=== PATIENT | male | born 1985 | race Caucasian/White ===

== ENCOUNTER → 2016-07-16 | Outpatient (CLI) | payer BC ==
[~2016-07-16] MED LIST: CLR10 PO
--- NOTE | 2016-07-16 12:21 | DIAGNOSTIC IMAGING REPORT ---
SI JOINTS 3 OR MORE VIEWS CLINICAL HISTORY: L40.50 Psoriatic [id number] High risk medication useZ79. 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 Mild sclerosis right sacroiliac joint. Sacral foramina symmetric. Mild degenerative change of the hips bilaterally. 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 Mild/moderate to moderate degenerative change right sacroiliac joint. Electronically signed by: Reinier Troy M.D. 07/16/2016 12:19 PM Dictated Date/Time: 07/16/2016 12:16 PM
--- NOTE | 2016-07-16 12:30 | DIAGNOSTIC IMAGING REPORT ---
LEFT CLAVICLE 2 VIEWS HISTORY: M89.8X1 Pain of left clavicle COMPARISON: None. FINDINGS: There is no fracture or dislocation. Soft tissues are unremarkable. No radiopaque foreign bodies. The AC joint is well aligned. No erosions identified. IMPRESSION: Unremarkable left clavicle. Electronically signed by: Jay Cantu M.D. 07/16/2016 12:28 PM Dictated Date/Time: 07/16/2016 12:28 PM
--- NOTE | 2016-07-16 12:32 | DIAGNOSTIC IMAGING REPORT ---
LEFT FOOT MIN 3 VIEWS ROUTINE CLINICAL HISTORY: Psoriatic arthropathy. COMPARISON: Left foot radiographs May 27, 2011. FINDINGS: Tarsometatarsal joints are intact. There is moderate plantar calcaneal spurring. There is joint space narrowing with erosions of the interphalangeal joint of the left first toe. Slight progression is noted since exam of May 27, 2011. There may also be erosions adjacent to the left first metatarsophalangeal joint which has slightly progressed. There is no acute fracture within the left foot. IMPRESSION: Mild progression of erosions involving the metatarsophalangeal and interphalangeal joints of the left great toe since exam of May 27, 2011. The findings suggest an erosive/inflammatory arthropathy and could be seen in the setting of psoriasis. Electronically signed by: Brent Mireles M.D. 07/16/2016 12:30 PM Dictated Date/Time: 07/16/2016 12:27 PM
--- NOTE | 2016-07-16 12:35 | DIAGNOSTIC IMAGING REPORT ---
THORACIC SPINE 3 VIEWS HISTORY: L40.50 Psoriatic [id number] High risk medication useZ79. COMPARISON: Thoracic spine 05/25/2008. FINDINGS: There is no fracture. Minimal S-shaped scoliosis of the thoracic spine. No endplate erosion. Paraspinal soft tissues are within normal limits. Mild disc space narrowing and small endplate osteophytes within the mid to lower thoracic spine is again noted. This is consistent with degenerative change. IMPRESSION: Mild degenerative disc disease, unchanged. No fractures. Electronically signed by: Jay Cantu M.D. 07/16/2016 12:33 PM Dictated Date/Time: 07/16/2016 12:30 PM
== END | disposition home or self-care (01) ==
LOC: C.RAD1850 11:25
PROVIDERS: ATTEND Internal Medicine Rheumatology
DX: M89.8X1 Other specified disorders of bone, shoulder (principal); L40.50 Arthropathic psoriasis, unspecified; Z79.1 Long term (current) use of non-steroidal anti-inflammatories (NSAID); Z79.899 Other long term (current) drug therapy

== ENCOUNTER → 2016-08-19 | Outpatient (CLI) | payer BC ==
[2016-08-19 13:26] LABS: BASO % 0.2 %; BASO ABS # 0.02 K/uL (0-0.2); COMPLETE YES; EOS % 4.1 %; HEMATOCRIT 45.3 % (42-52); IG% 0.2 %; LYMPH % 32.3 %; LYMPH ABS # 3.41 K/uL (1.2-3.4); MEAN CELL VOLUME 90.4 fL (80-100); MEAN CORPUSCULAR HEMOGLOBIN 29.9 pg (25-34); MEAN CORPUSCULAR HGB CONC 33.1 g/dl (32-36); MEAN PLATELET VOLUME 9.8 fL (7.4-10.4); MONO % 6.2 %; PLATELET COUNT 267 K/uL (130-400); RED BLOOD COUNT 5.01 M/uL (4.7-6.1); WHITE BLOOD COUNT 10.56 K/uL (4.8-10.8)
[2016-08-19 14:19] LABS: ALT/SGPT 40 U/L (12-78); AST/SGOT 15 U/L (15-37); CREATININE 0.78 mg/dl (0.60-1.40)
[2016-08-19 14:21] LABS: ALKALINE PHOSPHATASE 91 U/L (45-117)
== END | disposition home or self-care (01) ==
LOC: C.LAB1850 12:17
PROVIDERS: ATTEND Internal Medicine Rheumatology
DX: L40.50 Arthropathic psoriasis, unspecified (principal); Z79.899 Other long term (current) drug therapy; Z79.1 Long term (current) use of non-steroidal anti-inflammatories (NSAID)

== ENCOUNTER → 2016-12-24 | Outpatient (CLI) | payer BC ==
[2016-12-24 09:36] LABS: BASO % 0.3 %; BASO ABS # 0.03 K/uL (0-0.2); COMPLETE YES; EOS % 3.5 %; HEMATOCRIT 46.1 % (42-52); IG% 0.4 %; LYMPH ABS # 3.63 K/uL (1.2-3.4); MEAN CELL VOLUME 91.5 fL (80-100); MEAN CORPUSCULAR HGB CONC 33.8 g/dl (32-36); MEAN PLATELET VOLUME 10.3 fL (7.4-10.4); MONO % 7.8 %; PLATELET COUNT 231 K/uL (130-400); RED BLOOD COUNT 5.04 M/uL (4.7-6.1); WHITE BLOOD COUNT 11.35 K/uL (4.8-10.8)
[2016-12-24 10:11] LABS: ALT/SGPT 36 U/L (12-78); CREATININE 0.89 mg/dl (0.60-1.40)
[2016-12-24 10:14] LABS: ALKALINE PHOSPHATASE 85 U/L (45-117); AST/SGOT 20 U/L (15-37)
== END | disposition home or self-care (01) ==
LOC: C.LAB1850 08:27
PROVIDERS: ATTEND Internal Medicine Rheumatology
DX: L40.50 Arthropathic psoriasis, unspecified (principal); Z79.899 Other long term (current) drug therapy; Z79.1 Long term (current) use of non-steroidal anti-inflammatories (NSAID)

== ENCOUNTER → 2017-04-19 | Outpatient (CLI) | payer BC ==
[2017-04-19 09:45] LABS: BASO % 0.2 %; BASO ABS # 0.02 K/uL (0-0.2); EOS % 3.8 %; HEMATOCRIT 43.7 % (42-52); IG# 0.06 K/uL (0.00-0.02); LYMPH % 31.5 %; LYMPH ABS # 3.31 K/uL (1.2-3.4); MEAN CELL VOLUME 91.2 fL (80-100); MEAN CORPUSCULAR HEMOGLOBIN 31.3 pg (25-34); MEAN CORPUSCULAR HGB CONC 34.3 g/dl (32-36); MEAN PLATELET VOLUME 10.5 fL (7.4-10.4); MONO % 8.2 %; MONO ABS # 0.86 K/uL (0.11-0.59); NEUT % 55.7 %; NEUT ABS # 5.85 K/uL (1.4-6.5); PLATELET COUNT 277 K/uL (130-400); RED CELL DISTRIBUTION WIDTH CV 13.5 % (11.5-14.5); RED CELL DISTRIBUTION WIDTH SD 44.3 fL (36.4-46.3)
[2017-04-19 10:11] LABS: ALBUMIN 3.8 gm/dl (3.4-5.0); ALKALINE PHOSPHATASE 80 U/L (45-117); ALT/SGPT 31 U/L (12-78); AST/SGOT 14 U/L (15-37); CREATININE 0.92 mg/dl (0.60-1.40); TOTAL PROTEIN 7.4 gm/dl (6.4-8.2)
== END | disposition home or self-care (01) ==
LOC: C.LAB1850 07:44
PROVIDERS: ATTEND Internal Medicine Rheumatology
DX: L40.50 Arthropathic psoriasis, unspecified (principal); Z79.899 Other long term (current) drug therapy; Z79.1 Long term (current) use of non-steroidal anti-inflammatories (NSAID)

== ENCOUNTER → 2017-08-17 | Outpatient (CLI) | payer BC ==
[2017-08-17 12:24] LABS: BASO % 0.2 %; BASO ABS # 0.02 K/uL (0-0.2); EOS % 2.8 %; EOS ABS # 0.27 K/uL (0-0.5); HEMATOCRIT 43.8 % (42-52); HEMOGLOBIN 14.7 g/dL (14.0-18.0); IG# 0.03 K/uL (0.00-0.02); LYMPH % 35.2 %; LYMPH ABS # 3.38 K/uL (1.2-3.4); MEAN CELL VOLUME 89.4 fL (80-100); MEAN CORPUSCULAR HGB CONC 33.6 g/dl (32-36); MONO ABS # 0.58 K/uL (0.11-0.59); NEUT % 55.5 %; NEUT ABS # 5.31 K/uL (1.4-6.5); PLATELET COUNT 240 K/uL (130-400); RED CELL DISTRIBUTION WIDTH CV 13.8 % (11.5-14.5); RED CELL DISTRIBUTION WIDTH SD 45.2 fL (36.4-46.3); WHITE BLOOD COUNT 9.59 K/uL (4.8-10.8)
[2017-08-17 12:42] LABS: ALBUMIN 3.9 gm/dl (3.4-5.0); ALT/SGPT 28 U/L (12-78); AST/SGOT 14 U/L (15-37); CREATININE 0.94 mg/dl (0.60-1.40)
[2017-08-17 12:47] LABS: ALKALINE PHOSPHATASE 80 U/L (45-117); TOTAL PROTEIN 7.5 gm/dl (6.4-8.2)
== END | disposition home or self-care (01) ==
LOC: C.LAB1850 10:48
PROVIDERS: ATTEND Internal Medicine Rheumatology
DX: L40.50 Arthropathic psoriasis, unspecified (principal); Z79.899 Other long term (current) drug therapy; Z79.1 Long term (current) use of non-steroidal anti-inflammatories (NSAID)